=== PATIENT | female | born 1970 | race Caucasian/White ===

== ENCOUNTER 2024-03-07 21:29 | Emergency (ER) | payer OTHER, SELFPAY ==
[2024-03-07 21:52] VITALS: BP 148/102; PULSE 68; TEMP 37.1; O2SAT 98; BMI 62.4
--- NOTE | 2024-03-07 23:47 | ED.ABDPAIN1 ---
HPI - Abdominal Pain General Chief Complaint: Abdominal Pain Stated Complaint: ABDOMINAL PAIN, SOB Time Seen by Provider: 03/07/24 23:40 Source: patient Mode of arrival: Wheelchair Limitations: no limitations History of Present Illness HPI narrative: patient presents complaining of abdominal pain for one week. States her son made her come in because of her complaints. No vomiting. Gastric bypass 20+ years ago. past cholecystectomy Did have loose stool yesterday. No fever. points to epigastric area as the site of the discomfort. Denies pain of her lower abdominal pannus Related Data Allergies Allergy/AdvReac Type Severity Reaction Status Date / Time morphine Allergy Severe Difficulty Verified 03/07/24 21:52 Breathing cephalexin [From Keflex] Allergy Intermediate Nausea Verified 03/07/24 21:52 tramadol Allergy Intermediate Nausea Verified 03/07/24 21:52 Review of Systems ROS Status of ROS 10 or more systems reviewed and unremarkable except as noted in history and below Exam Constitutional Vital Signs, click to edit/add: Last Vital Signs Temp 98.8 F 03/07/24 21:52 Pulse 63 03/08/24 00:37 Resp 18 03/08/24 00:37 BP 144/72 H 03/08/24 00:37 Pulse Ox 100 03/08/24 00:37 O2 Del Method Room Air 03/08/24 00:37 Common normals: no apparent distress, oriented x3, no limitations, healthy appearing, alert and well nourished [facility] Common normals: normocephalic and head/scalp atraumatic Respiratory Common normals: normal respiratory effort, no retractions, no use of accessory muscles and clear to auscultation bilaterally Cardio Common normals: regular rate, regular rhythm, S1 normal heart sound and S2 normal heart sound GI Common normals: Normal to inspection, nondistended, normoactive bowel sounds present, soft to palpation and non-tender Other: pannus not inflammed Extremity Common normals: normal to inspection and full ROM Neuro Common normals: oriented x3, CN's II-XII intact bilaterally, moves all extremities and no focal motor deficits Psych Appearance: grossly normal Course Vital Signs Vital signs: Vital Signs Temperature 98.8 F 03/07/24 21:52 Pulse Rate 68 03/07/24 21:52 Respiratory Rate 20 03/07/24 21:52 Blood Pressure 148/102 H 03/07/24 21:52 Pulse Oximetry 98 03/07/24 21:52 Oxygen Delivery Method Room Air 03/07/24 21:52 Temperature 98.8 F 03/07/24 21:52 Pulse Rate 63 03/08/24 00:37 Respiratory Rate 18 03/08/24 00:37 Blood Pressure 144/72 H 03/08/24 00:37 Pulse Oximetry 100 03/08/24 00:37 Oxygen Delivery Method Room Air 03/08/24 00:37 MDM - Abdominal Pain MDM Narrative Medical decision making narrative: patient presents with abdominal pain past 4-5 days. Worse after eating. also loose bowel but not diarrhea. Abdominal exam neg. CT with finding of possible panniculitis but exam of the abdomen without findings of pannulitiis. Patient treated with Bentyl and discharged to followup with her doctor for recheck Lab Data Labs: Lab Results 03/07/24 03/07/24 Range/Units 22:58 23:20 WBC 8.6 (4.0-11.0) 10^3/uL RBC 4.18 L (4.20-5.40) 10^6/uL Hgb 11.2 L (12.0-16.0) g/dL Hct 37.3 (36.0-48.0) % MCV 89.2 (81.0-99.0) fL MCH 26.8 (26.7-34.0) pg MCHC 30.0 (29.9-35.2) g/dL RDW 15.9 H (11.0-15.0) % Plt Count 323 (150-450) 10^3/uL MPV 9.8 (9.5-13.5) fL Neut % (Auto) 61.1 (43.0-75.0) % Lymph % (Auto) 26.1 (20.5-60.0) % [place] % (Auto) 10.4 (1.7-12.0) % Eos % (Auto) 1.5 (0.9-7.0) % Baso % (Auto) 0.7 (0.2-2.0) % Neut # (Auto) 5.2 (1.4-6.5) 10^3/uL Lymph # (Auto) 2.2 (1.2-3.8) 10^3/uL [place] # (Auto) 0.9 H (0.3-0.8) 10^3/uL Eos # (Auto) 0.1 (0.0-0.7) 10^3/uL Baso # (Auto) 0.1 (0.0-0.1) 10^3/uL Abs Immat Gran (auto) 0.02 (0.00-0.03) 10^3/uL Imm/Tot Granulo (auto) 0.2 (0.0-0.5) % Sodium 139 (136-145) mmol/L Potassium 3.9 (3.5-5.1) mmol/L Chloride 107 (98-107) mmol/L Carbon Dioxide 24.8 (21.0-32.0) mmol/L Anion Gap 11.1 BUN 15.0 (7.0-18.0) mg/dL Creatinine 0.59 (0.55-1.02) mg/dL Est GFR ( Amer) >60 (>=60) Est GFR (Non-Af Amer) >60 (>=60) BUN/Creatinine Ratio 25.4 Glucose 100 (74-106) mg/dL Lactate 1.1 (0.4-2.0) mmol/L Calcium 8.4 L (8.5-10.1) mg/dL Total Bilirubin 0.2 (0.2-1.0) mg/dL AST 15 (15-37) U/L ALT 19 (14-59) U/L Alkaline Phosphatase 83 (46-116) U/L Troponin I High Sens 9.4 (4.0-51.3) pg/mL Total Protein 7.2 (6.4-8.2) g/dL Albumin 3.1 L (3.4-5.0) g/dL Globulin 4.1 g/dL Albumin/Globulin Ratio 0.8 Lipase 45.0 (16.0-77.0) U/L Urine Color Lt. yellow (YELLOW) Urine Clarity Clear (CLEAR) Urine pH 6.0 (5.0-9.0) Ur Specific [place] 1.020 (1.005-1.025) Urine Protein Negative (NEG/TRACE) mg/dL Urine Glucose (UA) Negative (NEGATIVE) mg/dL Urine Ketones Negative (NEGATIVE) mg/dL Urine Occult Blood Small A (NEGATIVE) Urine Nitrite Negative (NEGATIVE) Urine Bilirubin Negative (NEGATIVE) Urine Urobilinogen 0.2 (0.2-1.0) EU/dL Ur Leukocyte Esterase Negative (NEGATIVE) Urine RBC 2-5 A (0-2) #/HPF Urine WBC None seen (NONE SEEN) #/HPF Ur Squamous Epith Cells Few A (NONE/RARE) #/LPF Urine Crystals None seen (None Seen) #/HPF Urine Bacteria None seen (NONE SEEN) #/HPF Urine Casts None seen (NONE SEEN) #/LPF Urine Mucus None seen (NONE SEEN) Ur Culture Indicated? No Imaging Data Abdominal x-ray: Radiologist's impression: ITS Impressions Abdomen/Pelvis CT 03/07/24 23:50 IMPRESSION: 1. No acute process in the abdomen or pelvis. Electronically authenticated by: ROXI WOODWARD Date: 03/08/2024 01:52 Discharge Plan Discharge Stand Alone Forms: Portal Instructions Chief Complaint: Abdominal Pain Clinical Impression: Abdominal pain Patient Disposition: Home, Self-Care Print Language: Macedonian Instructions: Abdominal Pain (ED) Additional Instructions: follow up with your doctor next week for recheck Referrals: CARMELITA LOVE [Primary Care Provider] - 1 week
--- NOTE | 2024-03-07 23:50 | CT_ITS ---
The [address] [address] Patient Name: RASHARD NORMAN MRN: [id number] date: 1970 Sex: F Assigned Patient Location: ER Current Patient Location: ER Accession/Order Number: [id number] Exam Date: 03/07/2024 23:59 Report Date: 03/08/2024 01:52 At the request of: ROSS MCNEIL Procedure: CT abdomen pelvis w con CT ABDOMEN AND PELVIS WITH CONTRAST: INDICATION: abdominal pain. COMPARISON: 01/23/2017. TECHNIQUE:Multiple thin section transaxial slices were acquired through the abdomen and pelvis with intravenous contrast. Coronal and sagittal reconstructed images were reviewed. Oral contrastWas not administered. FINDINGS: LOWER CHEST: The lower chest is unremarkable. LIVER: The liver is unremarkable. GALLBLADDER AND BILIARY SYSTEM: No obvious ductal dilation. The gallbladder is absent. SPLEEN: The spleen is unremarkable. PANCREAS: The pancreas is unremarkable. ADRENAL GLANDS: The adrenal glands are unremarkable. KIDNEYS AND URETERS: There is no hydronephrosis of the kidneys.No obstructing urologic calcifications are present. VASCULATURE: Vascularity is unremarkable. PERITONEUM/RETROPERITONEUM: No free air or free fluid is present. LYMPH NODES: No suspicious lymphadenopathy. GASTROINTESTINAL TRACT: The patient is status post gastric bypass. The bowel is normal in caliber.No acute inflammatory process is associated with the bowel.The appendix is absent. BLADDER: The urinary bladder is unremarkable. REPRODUCTIVE SYSTEM: Reproductive system is unremarkable. BODY WALL: Subcutaneous fat stranding is present along the lower anterior abdominal wall and may be secondary to panniculitis. There is diastases of the anterior abdominal muscle. BONES: Internal fixation hardware is present in the right proximal femur. CT/CT abdomen pelvis w con IMPRESSION: 1. No acute process in the abdomen or pelvis. Electronically authenticated by: ROXI WOODWARD Date: 03/08/2024 01:52
[2024-03-07 23:57] LABS: Basophils Absolute Auto 0.1 10^3/uL (0.0-0.1); Basophils Percent Auto 0.7 % (0.2-2.0); Eosinophils Absolute Auto 0.1 10^3/uL (0.0-0.7); Eosinophils Percent Auto 1.5 % (0.9-7.0); Hematocrit 37.3 % (36.0-48.0); Hemoglobin 11.2 g/dL (12.0-16.0); Immature Granulocytes Abs Auto 0.02 10^3/uL (0.00-0.03); Immature Granulocytes Pct Auto 0.2 % (0.0-0.5); Lymphocytes Absolute Auto 2.2 10^3/uL (1.2-3.8); Lymphocytes Percent Auto 26.1 % (20.5-60.0); Mean Corpuscular Hemoglobin 26.8 pg (26.7-34.0); Mean Corpuscular Volume 89.2 fL (81.0-99.0); Mean Platelet Volume 9.8 fL (9.5-13.5); Monocytes Absolute Auto 0.9 10^3/uL (0.3-0.8); Monocytes Percent Auto 10.4 % (1.7-12.0); Neutrophils Absolute Auto 5.2 10^3/uL (1.4-6.5); Neutrophils Percent Auto 61.1 % (43.0-75.0); Platelet Count 323 10^3/uL (150-450); Red Blood Count 4.18 10^6/uL (4.20-5.40); Red Cell Distribution Width 15.9 % (11.0-15.0); White Blood Count 8.6 10^3/uL (4.0-11.0)
[2024-03-08 00:11] LABS: Lactate/Lactic Acid 1.1 mmol/L (0.4-2.0)
[2024-03-08 00:19] LABS: Alanine Aminotransferase 19 U/L (14-59); Albumin Globulin Ratio 0.8; Albumin Level 3.1 g/dL (3.4-5.0); Alkaline Phosphatase 83 U/L (46-116); Anion Gap 11.1; Aspartate Amino Transferase 15 U/L (15-37); BUN Creatinine Ratio 25.4; Bilirubin Total 0.2 mg/dL (0.2-1.0); Calcium 8.4 mg/dL (8.5-10.1); Carbon Dioxide 24.8 mmol/L (21.0-32.0); Chloride 107 mmol/L (98-107); Estimated GFR (African America >60 (>=60); Estimated GFR (Non-African Ame >60 (>=60); Globulin 4.1 g/dL; Glucose 100 mg/dL (74-106); Potassium 3.9 mmol/L (3.5-5.1); Sodium 139 mmol/L (136-145); Total Protein 7.2 g/dL (6.4-8.2); Troponin I High Sensitivity 9.4 pg/mL (4.0-51.3)
[2024-03-08] MEDS: 0.9 % SODIUM CHLORIDE 1,000 ML 999 ML IV (00:30)
[2024-03-08 00:37] VITALS: BP 144/72; PULSE 63; O2SAT 100
[2024-03-08 01:26] LABS: Bilirubin Urine NEGATIVE (NEGATIVE); Blood Urine SMALL (NEGATIVE); Clarity Urine CLEAR (CLEAR); Color Urine LT. YELLOW (YELLOW); Glucose Urine UA NEGATIVE (NEGATIVE); Ketones Urine NEGATIVE (NEGATIVE); Leukocyte Esterase Urine NEGATIVE (NEGATIVE); Nitrite Urine NEGATIVE (NEGATIVE); Protein Urine NEGATIVE (NEG/TRACE); Urobilinogen Urine 0.2 EU/dL (0.2-1.0)
[2024-03-08 01:27] LABS: Urine Microscopic Indicated YES
[2024-03-08 01:32] LABS: Bacteria Urine NONE SEEN #/HPF (NONE SEEN); Cast Seen? NONE SEEN #/LPF (NONE SEEN); Crystals Seen? None Seen #/HPF (None Seen); Mucus Urine NONE SEEN (NONE SEEN); Squamous Epithelial Cell Urine FEW #/LPF (NONE/RARE); Urine Culture Indicated NO; WBC Urine NONE SEEN #/HPF (NONE SEEN)
[2024-03-08] MEDS: DICYCLOMINE HCL 20 MG/2 ML VIAL IM (02:25)
== END 2024-03-08 02:30 | disposition home or self-care (01) ==
PROVIDERS: Emergency Provider Internal Medicine; PCP Internal Medicine
DX: R10.9 Unspecified abdominal pain (principal); Z98.84 Bariatric surgery status
CPT/HCPCS: 36415; 74177; 80053; 81001; 83605; 83690; 84484; 85025; 96372; 99285; J0500; Q9967